=== PATIENT | female | born 1975 | race Two or more races ===

== ENCOUNTER 2022-02-05 07:40 | Day surgery (SDC) | payer OTHER ==
[~2022-02-05] VITALS: Ht 160 cm; Wt 55.3 kg
[~2022-02-05 07:40] MED LIST: SYNTHROID112 MCG PO
== END 2022-02-05 13:10 | disposition home or self-care (01) ==
LOC: CIR.AMB 07:40
PROVIDERS: ATTEND Obstetrics & Gynecology
DX: N84.0 Polyp of corpus uteri (principal); N84.1 Polyp of cervix uteri; N93.9 Abnormal uterine and vaginal bleeding, unspecified; E07.9 Disorder of thyroid, unspecified; E03.9 Hypothyroidism, unspecified; Z79.890 Hormone replacement therapy; R00.1 Bradycardia, unspecified; F17.200 Nicotine dependence, unspecified, uncomplicated; Z91.013 Allergy to seafood

== ENCOUNTER 2023-12-26 08:30 | Inpatient (IN) | payer OTHER ==
[~2023-12-26] VITALS: Ht 160 cm; Wt 54.4 kg
[2024-01-02] MEDS ORDERED: SYNTHROID100 MCG PO (09:31)
[2024-01-02 10:30] LABS: HEMATOCRIT 38.3 % (36.0-45.00); HEMOGLOBIN 12.8 g/dL (12.0-15.00); MEAN CELL VOLUME 89.7 fL (80.00-100.00); MEAN CORPUSCULAR HGB CONC 33.4 g/dl (32.0-36.0); PLATELET COUNT 212 K/uL (150-450); RED BLOOD COUNT 4.27 M/uL (4.00-6.00); RED CELL DISTRIBUTION WIDTH 14.2 % (11.5-14.5)
[2024-01-02 10:33] LABS: INR 1.02; PARTIAL THROMBOPLASTIN TIME 27.7 SECONDS (22.0-34.0); PROTHROMBIN TIME 10.7 SECONDS (9.0-11.5)
[2024-01-02 10:33] LABS: URINE APPEARANCE Clear; URINE BILIRRUBIN Negative (NEGATIVE); URINE BLOOD Negative; URINE COLOR Yellow; URINE GLUCOSE Negative (NEGATIVE); URINE KETONE Negative (NEGATIVE); URINE LEUKOCYTE Negative; URINE NITRATE Negative; URINE PROTEIN Negative (NEGATIVE); URINE UROBILINOGEN 0.2 E.U./dl
[2024-01-02 10:37] LABS: URINE BACTERIA 71.7 uL (0.0-1933); URINE RBC 10.5 uL (0.0-20.8)
[2024-01-02 10:52] LABS: URINE WBC 1.3 uL (0.0-23.2)
[2024-01-02 11:11] LABS: ALBUMIN 3.8 gm/dL (3.4-5.0); BILIRUBIN TOTAL 0.64 mg/dL (0.3-1.2); CALCIUM 9.2 mg/dL (8.5-10.1); CREATININE SERUM 0.55 mg/dL (0.55-1.02); GFR 116.99; GLOBULINA 3.5 G/DL (2.4-3.5); POTASSIUM 4.37 mEq/L (3.5-5.1); TOTAL PROTEIN 7.3 gm/dL (6.4-8.2)
[2024-01-06] MEDS ORDERED: CEFOXITIN SODIUM 2,000 MG VIAL IV ONE ×2 (08:35→12:00)
[2024-01-06] MEDS ORDERED: POVIDONE-IODINE 118 ML BOTT TOP ONE ×2 (10:15→12:00)
[2024-01-06] MEDS ORDERED: MORPHINE SULFATE 4 MG/ML VIAL IV ONE ×2 (12:30→13:00)
[2024-01-06] MEDS ORDERED: ONDANSETRON HCL 2 MG/ML VIAL ONE (12:31)
[2024-01-06] MEDS ORDERED: ONDANSETRON HCL 2 MG/ML VIAL IV ONE (12:35)
[2024-01-06] MEDS ORDERED: MEPERIDINE HCL/PF 50 MG/ML VIAL IV SCH (12:59)
[2024-01-06] MEDS ORDERED: PROMETHAZINE HCL 25 MG/ML AMPUL ONE (15:43)
[2024-01-06 15:50] LABS: MEAN CELL VOLUME 88.2 fL (80.00-100.00); MEAN CORPUSCULAR HEMOGLOBIN 30.3 pg (27.00-32.0); MEAN CORPUSCULAR HGB CONC 34.3 g/dl (32.0-36.0); PLATELET COUNT 201 K/uL (150-450); RED BLOOD COUNT 3.97 M/uL (4.00-6.00); RED CELL DISTRIBUTION WIDTH 14.4 % (11.5-14.5)
[2024-01-06] MEDS ORDERED: PROMETHAZINE HCL 25 MG/ML AMPUL IV SCH (16:00)
[2024-01-07] MEDS ORDERED: IBUprofen 800 MG TABLET PO SCH (02:00)
[2024-01-07] MEDS ORDERED: SIMETHICONE 125 MG CAPSULE PO SCH (05:00)
[2024-01-07] MEDS ORDERED: KETOROLAC TROMETHAMINE 60 MG VIAL IM STA (08:17)
[2024-01-07] MEDS ORDERED: POLYETHYLENE GLYCOL 3350 17 GM BLIST.PACK PO SCH (09:00)
[2024-01-07] MEDS ORDERED: GABAPENTIN 300 MG CAPSULE PO SCH (09:00)
[2024-01-08] MEDS ORDERED: LEVOTHYROXINE SODIUM 100 MCG TABLET PO SCH (06:00)
[2024-01-08] MEDS ORDERED: IBUPROFEN800 MG PO (06:36)
[2024-01-08] MEDS ORDERED: SIMETHICONE125 M1 PO (06:36)
[2024-01-08] MEDS ORDERED: GABAPENTIN300 MG PO (06:36)
[2024-01-08] MEDS ORDERED: POLY119PG PO (06:36)
== END 2024-01-08 07:57 | disposition home or self-care (01) | DRG 743 ==
LOC: SURG 01-06 05:24 → O/R 01-06 05:24 → SURH 01-06 07:00 → SURG 01-06 14:09
PROVIDERS: ADMIT Obstetrics & Gynecology; ATTEND Obstetrics & Gynecology
PROC: 0UT70ZZ Resection of Bilateral Fallopian Tubes, Open Approach (ICD-10-PCS; 2024-01-06)
PROC: 0UT90ZZ Resection of Uterus, Open Approach (ICD-10-PCS; principal; 2024-01-06 07:00)
DX: D25.1 Intramural leiomyoma of uterus (principal); D25.2 Subserosal leiomyoma of uterus; D25.0 Submucous leiomyoma of uterus; N80.203 Endometriosis of bilateral fallopian tubes, unspecified depth; Z20.822 Contact with and (suspected) exposure to COVID-19